=== PATIENT | female | born 1965 | race Caucasian/White ===

== ENCOUNTER 2017-02-16 13:42 | Emergency (ER) | payer MEDICAID | END 2017-02-16 14:22 | disposition left against medical advice (07) | LOC: D.ER 13:42 | DX: R41.0 Disorientation, unspecified (principal) ==

== ENCOUNTER → 2017-04-08 16:25 | Outpatient (CLI) | payer BC | END | disposition home or self-care (01) | LOC: D.MAMMO | DX: Z12.31 Encounter for screening mammogram for malignant neoplasm of breast (principal) ==